=== PATIENT | female | born 1970 | race Asian ===

== ENCOUNTER 2019-02-16 12:03 | Emergency (ER) | payer OTHER ==
[~2019-02-16] VITALS: Ht 165.1 cm; Wt 65.0 kg
[2019-02-16] MEDS ORDERED: KETOROLAC 30MG/ML VIAL IV STA (12:26)
[2019-02-16] MEDS ORDERED: SODIUM CHLORIDE 0.9% 1,000 ML IV ONE (12:26)
[2019-02-16] MEDS ORDERED: MORPHINE SULFATE 4 MG/ML CPJ (NOT FOR IM USE) IV STA (12:26)
[2019-02-16] MEDS ORDERED: ONDANSETRON HCL 4MG/2ML INJ IV STA (12:26)
[2019-02-16] MEDS ORDERED: LIDOCAINE 1%/EPI 1:100,000 10 ML VIAL IJ ONE (12:30)
[2019-02-16] MEDS ORDERED: BACITRACIN ZINC OINT UDPKT TOP ONE (12:30)
[2019-02-16] MEDS ORDERED: LIDOCAINE HCL/EPINEPHRINE 1%-EPI 1:100,000 20 ML VIAL INFIL ONE (12:45)
[2019-02-16 13:10] LABS: HCG SCREEN NEGATIVE
[2019-02-16] MEDS ORDERED: PROPOFOL 200MG/20ML VIAL IV ONE (14:30)
[2019-02-16] MEDS ORDERED: FENTANYL CITRATE/PF 50MCG/ML 2ML VIAL IV ONE (14:30)
[2019-02-16] MEDS ORDERED: KETAMINE HCL 50 MG/ML 10ML IV ONE (14:30)
[2019-02-16] MEDS ORDERED: MIDAZOLAM HCL 2 MG/2 ML VIAL IV ONE (14:30)
[2019-02-16 17:07] VITALS: BP 118/61
== END 2019-02-16 17:15 | disposition home or self-care (01) ==
LOC: ER 12:10
DX: S52.021A Displaced fracture of olecranon process without intraarticular extension of right ulna, initial encounter for closed fracture (principal); S01.511A Laceration without foreign body of lip, initial encounter; W01.0XXA Fall on same level from slipping, tripping and stumbling without subsequent striking against object, initial encounter; Y93.89 Activity, other specified; Y92.89 Other specified places as the place of occurrence of the external cause; Y99.8 Other external cause status
CPT/HCPCS: 12013; 25605; 70486; 73090; 84703; 96374; 96375; 99152; 99285; J1885; J2250; J2270; J2405; J2704; J3010; J3490; J7030; L3670